=== PATIENT | male | born 1990 | race Caucasian/White ===

== ENCOUNTER 2019-02-08 13:50 | Inpatient (IN) | payer SELFPAY ==
[2019-02-08] VITALS (10 sets, daily range): BP systolic 114–164; BP diastolic 64–112; PULSE 18–125; RESP 15–30; TEMP 37.6–37.9; O2SAT 95–100; BMI 41.0; BMI 40.5
--- NOTE | 2019-02-08 14:04 | RAD_ITS ---
STUDY: X-RAY - LEFT ANKLE/TIBIA FIBULA REASON FOR EXAM: Male, 28 years old. Trauma TECHNIQUE: 5 view(s) of the ankle and tibia-fibula. COMPARISON: None. FINDINGS: There is an acute minimally displaced fracture at the distal fibula metadiaphysis. Additionally there is dislocation of the ankle joint widening of the ankle mortise medially. Soft tissue swelling is noted around the fracture site. The remainder of the visualized osseous structures appear intact. RAD/Tibia & Fibula 2 Views IMPRESSION: Minimally displaced fracture of the distal fibula. Dislocation at the ankle joint. Electronically Signed: Jean Marie Ferguson, at 15:40 EST Tel , Service support ,
[2019-02-08] MEDS: Morphine 4 MG/ML Syringe IV (14:10)
--- NOTE | 2019-02-08 14:20 | RAD_ITS ---
STUDY: X-RAY - LEFT ANKLE/TIBIA FIBULA REASON FOR EXAM: Male, 28 years old. Trauma TECHNIQUE: 5 view(s) of the ankle and tibia-fibula. COMPARISON: None. FINDINGS: There is an acute minimally displaced fracture at the distal fibula metadiaphysis. Additionally there is dislocation of the ankle joint widening of the ankle mortise medially. Soft tissue swelling is noted around the fracture site. The remainder of the visualized osseous structures appear intact. RAD/Ankle min 3 Views IMPRESSION: Minimally displaced fracture of the distal fibula. Dislocation at the ankle joint. Electronically Signed: Jean Marie Ferguson, at 15:38 EST Tel , Service support ,
--- NOTE | 2019-02-08 15:02 | RAD_ITS ---
STUDY: X-RAY - LEFT ANKLE REASON FOR EXAM: Male, 28 years old. Left ankle post reduction. TECHNIQUE: 3 views of the ankle. COMPARISON: 2:18 PM. FINDINGS: Status post casting in fiberglass. Acute, shallow oblique fracture of the distal fibular shaft is again noted with 5 mm lateral displacement of the distal fragment. This is mildly improved compared to the prior study. Alignment is anatomic. There is moderate lateral subluxation of the talus relative to the tibia. This is moderately improved compared to the prior study, but there is persistent widening of the medial tibiotalar joint. Tibiotalar joint is now anatomically aligned. RAD/Ankle min 3 Views IMPRESSION: 1. Anatomic alignment of the tibiotalar joint status post reduction. 2. Significant interval improvement in tibiotalar subluxation, but with moderate persistent widening of the medial tibiotalar joint. 3. Anatomic alignment of the fibula, with mild lateral displacement, improved from the earlier study. Electronically Signed: Latesha Smith MD at 15:40 EST Tel , Service support ,
--- NOTE | 2019-02-08 15:30 | ED.VISSUMM ---
- ER Visit Summary Date of Service: 02/08/19 Chief Complaint: [Injury to left ankle] History of Present Illness: The patient is a 28 M [presents to the emergency department with an injury to left ankle that occurred during a slip in the barn today. Patient states that he was moving maneuver when he slipped and fell and injured her left ankle. Patient unable to bear weight afterwards. Patient arrives via EMS. Patient has seen Dr. Jiang in the past for surgery on his right foot. Patient denies any other injuries.] Physical Examination: [HEENT-PERRLA, EOMI. Cranial nerves II through XII grossly intact. TMs clear. Mucous membranes moist. No adenopathy. Cardiovascular-regular rate and rhythm without murmur or ectopy Lungs-clear to auscultation, chest wall stable without crepitus or subcu emphysema Abdomen-normoactive bowel sounds, soft, nontender, no rebound or rigidity, no peritoneal signs. Extremities-intact ?4, normal range of motion, normal pulses. Left ankle-patient has diffuse soft tissue swelling with obvious deformity at the left ankle. He is neurovascular intact with normal sensation normal cap refill. Patient has normal dorsal pedal posterior tibial pulses. He has no pain at the proximal fibular head. No open areas noted.] Test Results: [Is a left ankle read by myself is a fracture of the distal third of the fibula with widening of the mortise and dislocation of the tibiotalar joint. Postreduction films obtained also showed continued widening of the mortise however there is been good reduction of the talofibular joint.] Emergency Department Course and Treatment: [Patient was consented for procedural sedation and given propofol. Patient had the ankle reduced and was placed in a stirrup and posterior splint. Postreduction x-rays obtained continue to show widening of the mortise. I discussed case with orthopedics Dr. Heath who is concerned about continued widening of the mortise and will admit patient for surgical intervention tomorrow. Patient was given morphine for pain.] Treatment Plan: [Admit] Disposition: [Admit] Impression: [Ankle fracture dislocation-closed] This note was generated with [employer] software. It may contain incorrect words, spelling, and punctuation that were not noted in review of the chart prior to signing ED Disposition - Plan for ED Patient: Referrals: Satish Garcia MD [Primary Care Provider] -
--- NOTE | 2019-02-08 15:33 | NURSING ---
MED SURG JEFFY LEFT ANKLE FX, UNSTABLE
[2019-02-08] MEDS: 0.9% Normal Saline 1,000 ML 15 ML IV (17:28)
[2019-02-08 17:36] LABS: Bedside Glucose 352 mg/dL (70-110)
[2019-02-08 17:38] LABS: Hematocrit 44.1 % (40-54); Hemoglobin 15.8 g/dL (13.0-16.5); Mean Corp Hgb Conc 35.8 g/dL (32-36); Mean Corpuscular Hgb 30.7 pg (27.0-32.0); Mean Corpuscular Volume 85.8 fL (80-94); Mean Platelet Vol. 9.3 fl (6.2-12.0); Platelet Count 231 K/mm3 (150-450); RBC Distribution Width CV 11.5 % (11.6-14.6); RBC Distribution Width SD 35.8 fl (35.1-43.9); Red Blood Count 5.14 M/mm3 (4.6-6.2); White Blood Count 12.5 K/mm3 (4.4-11.0)
[2019-02-08 17:51] LABS: Anion Gap 5 (5-15); BUN 9 mg/dL (7-18); BUN/Creat Ratio 11.1 RATIO (10-20); Calcium,Total 8.9 mg/dL (8.5-10.1); Chloride 104 mmol/L (98-107); Creatinine, Serum 0.81 mg/dL (0.70-1.30); EST Glomerular Filtration Rate 120 mL/min (>60); Est Glom Filt Rate - Afr Amer 145 mL/min (>60); Estimated Creatinine Clearance 135.78 ml/min; Glucose 317 mg/dL (74-106); Potassium 4.2 mmol/L (3.5-5.1); Sodium Level 137 mmol/L (136-145)
[2019-02-08 17:56] LABS: Hemoglobin A1c 9.7 % (4.2-6.3)
[2019-02-08] MEDS: Insulin Lispro 100 UNIT/ML INSULN.PEN SC ×2 (18:08→22:28)
[2019-02-08 18:22] LABS: Cholesterol 180 mg/dL (200); High Density Lipoprotein 30 mg/dL; Triglycerides 203 mg/dL; Very Low Density Lipoprotein 41 mg/dL (5-40)
--- NOTE | 2019-02-08 18:55 | CON.PCM_ITS ---
Reason for Consult Date of Consultation: 02/08/19 Reason for Consultation: medical management for elevated blood sugar History of Present Illness: The patient is a 28 year old M with no significant past medical history. He was admitted through the ED on 05/14/2018 with a complaint of left ankle pain. Patient states he was in the barn and tripped and menu and fell and had sudden onset of severe pain in his left ankle. He therefore decided to come into the ED. Patient denied having any fever or chills prior to this and denied any cough or shortness of breath, any respiratory symptoms, any abdominal pain or any pain with urination diarrhea vomiting. Review systems otherwise negative. Patient was admitted to the podiatry service, with Dr Heath also on board, and hospitalist service was consulted on account of elevated blood sugar. Patient denies being a known diabetic but blood sugar was 352 on admission. On admission, he was also noted to have a fever with temperature of 99.7 Fahrenheit. CBC showed white cell count of 12.5. X-ray of the tibia and fibula showed minimally displaced fracture of the distal fibula and dislocation of the ankle joint. Same findings were found on ankle x-ray. A1c checked was 9.7 the hospitalist services been consulted to manage newly diagnosed diabetes with hyperglycemia. Past Medical History Allergies No Known Allergies Allergy (Verified 02/08/19 13:51) Home Medications: Ambulatory Orders Medication Instructions Recorded NK 02/08/19 Surgical History: no surgical history Psychiatric History: No pertinent psych hx Lives: Spouse/ Significant Other Smoking Status: Never smoker Alcohol: None Drugs: None - *Family History Maternal History Items: No pertinent history Review of Systems Constitutional: Denies: Chills, Fever, Malaise, Weakness, Weight Change Eyes: Denies: Blurred vision HEENT: Denies: Head Aches, Sinus Congestion, Sinus Drainage Cardiovascular: Denies: Chest Pain, Palpitations Respiratory: Denies: Cough, Shortness of breath at rest, Sputum production Gastrointestinal: Denies: Abdominal Pain, Nausea, Vomiting Genitourinary: Denies: Dysuria Musculoskeletal: Denies: Joint Pain, Joint Tenderness Skin: Denies: Rash, Wounds Neurological: Denies: Numbness, Tingling, Focal weakness Psychiatric: Denies: Anxiety, Depression, Homicidal Ideations, Suicidal Ideations Hematologic/ Lymphatic: Denies: Easy Bruising, Easy Bleeding - Physical Exam Vitals/I&O's: Vital Signs Temp Pulse Resp BP Pulse Ox 99.7 F H 98 18 130/80 H 96 02/08/19 16:25 02/08/19 16:25 02/08/19 16:25 02/08/19 16:25 02/08/19 16:25 Oxygen Flow Rate (L/min) [5] 2 Oxygen Flow Rate (L/min) [4] 2 Oxygen Flow Rate (L/min) [2] 2 Oxygen Delivery Method [5] Nasal Cannula Oxygen Delivery Method [4] Nasal Cannula Oxygen Delivery Method [3] Nasal Cannula Oxygen Delivery Method [2] Nasal Cannula Oxygen Delivery Method [1 ( Nasal Cannula Initial Baseline)] Oxygen Delivery Method Room Air Weight: 274 lb 8 oz Body Mass Index (BMI) 40.5 Intake and Output for Last 24 Hours 02/06/19 02/07/19 02/08/19 23:59 23:59 23:59 Intake Total 240 / 240 Output Total 700 / 700 Balance -460 / -460 General: Alert, Oriented x3, Cooperative, No apparent distress, - - obese HEENT: Atraumatic, PERRLA, EOMI, Normocephalic Oral: Moist Mucosa Neck: Supple, No JVD, Negative Carotid Bruits Lungs: Clear to auscultation, Normal air movement, No rhonchi, No wheeze, No rales Cardiovascular: Regular rate, Regular Rhythm, Normal S1, Normal S2, No murmurs Abdomen: Bowel Sounds Present, Soft, Non Tender, Non-Distended, No Hepato- splenomegaly Extremities: No edema, Capillary Refill Less than 3 Seconds Skin: No rashes, No breakdown Musculoskeletal: - - LLE in splint. Able to wiggle toes Lymphatic: No Cervical, Supraclavicular, or Inguinal Adenopathy Neurological: Cranial nerves II-XII grossly intact, Deep Tendon Reflexes 2+/4 and Symmetrical, Neuro grossly intact Psych/Mental Status: Normal Affect, Appropriate, Alert and oriented to time, place, person, mood and affect Laboratory Results 02/08/19 17:24: POC Glucose 352 H 02/08/19 17:29: WBC 12.5 H, RBC 5.14, Hgb 15.8, Hct 44.1, MCV 85.8, MCH 30.7, MCHC 35.8, RDW Std Deviation 35.8, RDW Coeff of Pancho 11.5 L, Plt Count 231, MPV 9.3 02/08/19 17:29: Sodium 137, Potassium 4.2, Chloride 104, Carbon Dioxide 28.0, Anion Gap 5, BUN 9, Creatinine 0.81, Estim Creat Clear Calc 135.78, Est GFR (MDRD) Af Amer 145, Est GFR (MDRD) Non-Af 120, BUN/Creatinine Ratio 11.1, Glucose 317 H, Calcium 8.9 02/08/19 17:29: Hemoglobin A1c 9.7 H 02/08/19 17:59: Triglycerides 203 H, Cholesterol 180, LDL Cholesterol 109, VLDL Cholesterol 41 H, HDL Cholesterol 30 L Diagnostic Data Tibia/Fibula X-Ray 02/08/19 14:04 IMPRESSION: Minimally displaced fracture of the distal fibula. Dislocation at the ankle joint. Electronically Signed: Jean Marie Ferguson at 15:40 EST Tel , Service support , Ankle X-Ray 02/08/19 15:02 IMPRESSION: 1. Anatomic alignment of the tibiotalar joint status post reduction. 2. Significant interval improvement in tibiotalar subluxation, but with moderate persistent widening of the medial tibiotalar joint. 3. Anatomic alignment of the fibula, with mild lateral displacement, improved from the earlier study. Electronically Signed: Latesha Smith MD at 15:40 EST Tel , Service support , Current Medications Acetaminophen (Tylenol) 1,000 mg PO Q8 [facility] Sodium Chloride () 250 mls @ 15 mls/hr IV .[id number] PRN PRN Reason: Saline Flush Sodium Chloride () 1,000 mls @ 15 mls/hr IV .Q48H [facility] Last Admin: 02/08/19 17:28 Dose: 15 mls/hr Documented by: Lactated Ringer's () 1,000 mls @ 100 mls/hr IV .Q10H [facility] Cefazolin Sodium 2 gm/ Sodium (Chloride) 110 mls @ 150 mls/hr IV X1 ONE Stop: 02/09/19 06:43 Insulin Human Lispro (Humalog Kwikpen (Bkc)) 0 unit SC ACHS [facility]; Protocol Last Admin: 02/08/19 18:08 Dose: 8 u Documented by: Morphine Sulfate () 2 - 4 mg IV Q3H PRN PRN PRN Reason: pain score 5-7/10 Morphine Sulfate () 4 mg IV Q3H PRN PRN PRN Reason: pain >7/10 Oxycodone HCl (Oxyir) 5 mg PO Q4H PRN PRN PRN Reason: Pain Score 6-10/10 Sodium Chloride () 10 - 40 ml IV UD PRN PRN Reason: SALINE FLUSH Assessment/Plan 28 y/o admitted with a complaint of left ankle pain after mechanical fall 1. Left displaced fracture of the distal fibula and ankle joint dislocation * slipped in manure and fell and hurt his ankle * xrays showed minimally displaced fracture of the distal fibula and dislocation of the ankle joint. * LLE placed in splint in ED * orthopedic surgery on board; for surgery tomorrow * RCRI index for this patient-0/4 * patient is at low perioperative cardiac risk for surgery- unable to access NSQIP risk score online at time of review. * 2. Newly diagnosed diabetes mellitus * blood glucose was 352 on admission, and A1C checked was 9.7 * to start on metformin after surgery. start ISS. accuchecks ACHS * lipid panel: total cholesterol oaf 180, LDL of 109, HDL of 30. * 3. Fever and leucocytosis * etiology is unclear. Temperature was 100.3F on admission, and wbc is 12.5 * no evidence of infection, as he denies any fever, chills, cough or shortness of breath, abdominal pain or urinary symptoms * blood cultures ordered, as well as urinalysis * fever and leucocytosis could also be reactive, from fracture. * will hold off on antibiotics for now due to no obvious source of infection. * 4. Probable BURKE * patient is obese, and says he snores and has some apneic episodes * patient counseled that he is at risk of respiratory compromise if he undergoes general anesthesia for surgery, due to his risk for BURKE * counseled he will benefit from follow up with pulmonology upon discharge. * Thank you for the courtesy of the consult. We will continue to follow with you. * Code Visit Office Visits / Consults: [id number] IP Consult L4
[2019-02-08 19:37] LABS: Bacteria 0 SEEN /hpf (None Seen); Mucous, Urine 0 SEEN /hpf (<or=2+); White Blood Cells 0 SEEN /hpf (0-5)
[2019-02-08 19:41] LABS: Color, Urine Yellow (Yellow); Glucose, Dipstick Normal (Normal); Ketone-Dipstick Negative (Negative); Leukocyte Esterase-Dipstick Negative /ul (Negative); Nitrite-Dipstick Negative (Negative); Occult Blood-Urine 25 /ul (Negative); Protein-Dipstick Negative (Negative); Urine Bilirubin Dipstick Negative (Negative); Urine Clarity Sl. Cloudy (Clear); Urine Urobilinogen Normal (Normal)
[2019-02-08 19:58] LABS: Amorphous Sediment 1+ PHOS; Red Blood Cells-Urine 0-5 SEEN /hpf (0-5); Squamous Epithelial Cells - UA 0-5 SEEN /hpf (0-5)
[2019-02-08] MEDS: Acetaminophen 500 MG Tablet 1000 MG PO (22:27)
[2019-02-08 22:35] LABS: Bedside Glucose 347 mg/dL (70-110)
[2019-02-09] VITALS (11 sets, daily range): BP systolic 116–160; BP diastolic 64–100; PULSE 78–110; RESP 14–20; TEMP 36.7–37.7; O2SAT 91–98
[2019-02-09] MEDS: Lactated Ringers 1,000 ML 100 ML IV ×3 (00:04→14:07)
--- NOTE | 2019-02-09 05:00 | EKG12_ITS ---
Test Reason : PREOP Blood Pressure : / mmHG Vent. Rate : 083 BPM Atrial Rate : 083 BPM P-R Int : 150 ms QRS Dur : 094 ms QT Int : 370 ms P-R-T Axes : 042 -05 036 degrees QTc Int : 434 ms Normal sinus rhythm Normal ECG No previous ECGs available Confirmed by SRIDEVI SCHMITT, FAY ([id number]), scientific publications editor ANNIKA LÓPEZ ([id number]) on 02/09/2019 12:15:39 PM Referred By: Rei Heath Confirmed By:ANGELICA LAUREANO MD
[2019-02-09] MEDS: Insulin Lispro 100 UNIT/ML INSULN.PEN SC ×4 (06:31→22:46)
[2019-02-09 06:45] LABS: Bedside Glucose 231 mg/dL (70-110)
--- NOTE | 2019-02-09 07:38 | NURSING ---
pt transported down to surgery at this time via bed with IV running, report called to surgery. aware that consent is not signed as pt has not spoken with surgeon yet.
--- NOTE | 2019-02-09 07:39 | PCM.HP.STD ---
Problem List (1) Dislocation of left ankle joint, initial encounter Status: Acute (2) Fracture of fibula, left, closed Status: Acute Qualifiers: Encounter type: initial encounter Fibula location: shaft Fracture morphology: comminuted Fracture alignment: displaced Qualified Code(s): S82.452A - Displaced comminuted fracture of shaft of left fibula, initial encounter for closed fracture (3) Syndesmotic disruption of left ankle Status: Acute Qualifiers: Encounter type: initial encounter Qualified Code(s): S93.432A - Sprain of tibiofibular ligament of left ankle, initial encounter (4) Sprain of deltoid ligament of left ankle, initial encounter Status: Acute (5) Blood glucose elevated Status: Acute History of Present Illness Date of Admission: 02/08/19 Chief Complaint: Pain in left ankle s/p fall The patient is a 28 year old M with no significant past medical history. He was admitted through the ED on 02/08/[address] Heath with a complaint of left ankle pain. Patient states he was in his barn working. Unfortunately, he tripped and fell, placing all of his weight on his left ankle. He noticed immediate deformity of the ankle with significant pain. He was then brought to the emergency department by emergency services. Patient denied having any fever or chills prior to this and denied any cough or shortness of breath, any respiratory symptoms, any abdominal pain or any pain with urination diarrhea vomiting. Review systems otherwise negative. Patient was admitted to the orthopaedic service under Dr Heath, and hospitalist service was consulted on account of elevated blood sugar. The patient's blood sugar during transport to the hospital was 500. Patient denies being a known diabetic but blood sugar was 352 on admission. On admission, he was also noted to have a fever with temperature of 99.7 Fahrenheit. CBC showed white cell count of 12.5. X-ray of the tibia and fibula showed displaced fracture of the fibula and dislocation of the ankle joint. Due to the hyperglycemia and dislocation of the ankle, the patient was admitted for further workup and surgical intervention. [] Past Medical History Medical History: Medical History (Last Reviewed 02/09/19 @ 07:46 by Camilo Nix DPM) None (Acute) Patient denies medical problems Z78.9 Allergies No Known Allergies Allergy (Verified 02/08/19 13:51) Home Medications: Ambulatory Orders Medication Instructions Recorded NK 02/08/19 Surgical History: no surgical history Psychiatric History: No pertinent psych hx Lives: Spouse/ Significant Other Smoking Status: Never smoker Alcohol: None Drugs: None - *Family History Maternal Family History: Family History (Last Updated 02/09/19 @ 07:38 by Camilo Nix DPM) Other Family history reviewed with no changes History Items: No pertinent history Review of Systems Constitutional: Denies: Chills, Fever, Night Sweats, Malaise, Weakness, Fatigue Eyes: Denies: Blurred vision HEENT: Denies: Difficulty Hearing, Difficulty Swallowing, Dysphasia, Ear Pain, Eye Pain, Hard of Hearing, Head Aches Cardiovascular: Denies: Chest Pain, Claudication, Chest Pressure, Chest Tightness Respiratory: Denies: Cough, Shortness of Breath, Wheezing Gastrointestinal: Denies: Abdominal Pain, Constipation, Diarrhea, Dyspepsia, Nausea, Vomiting Genitourinary: Denies: Dysuria, Frequency Musculoskeletal: Reports: Joint swelling, Joint Tenderness, Leg Pain - left ankle pain Skin: Denies: Jaundice, Wounds Neurological: Denies: Balance problems, Blurred vision, Double vision Psychiatric: Denies: Anxiety, Depression Endocrine: Denies: Heat/ Cold Intolerance, Polydipsia, Polyuria Hematologic/ Lymphatic: Denies: Easy Bruising, Easy Bleeding VTE Information - Inpt Only VTE Present on Admission: No Patient Problems: Active and Suspected Problems (Last Reviewed 02/09/19 @ 07:46 by Camilo Nix DPM) Dislocation of left ankle joint, initial encounter (Acute) Fracture of fibula, left, closed (Acute) Syndesmotic disruption of left ankle (Acute) Sprain of deltoid ligament of left ankle, initial encounter (Acute) Blood glucose elevated (Acute) None (Acute) - Physical Exam Vitals/I&O's: Vital Signs Temp Pulse Resp BP Pulse Ox 99.0 F 78 16 135/79 H 98 02/09/19 04:35 02/09/19 04:35 02/09/19 04:35 02/09/19 04:35 02/09/19 04:35 Oxygen Flow Rate (L/min) [5] 2 Oxygen Flow Rate (L/min) [4] 2 Oxygen Flow Rate (L/min) [2] 2 Oxygen Delivery Method [5] Nasal Cannula Oxygen Delivery Method [4] Nasal Cannula Oxygen Delivery Method [3] Nasal Cannula Oxygen Delivery Method [2] Nasal Cannula Oxygen Delivery Method [1 ( Nasal Cannula Initial Baseline)] Oxygen Delivery Method Room Air Weight: 124.511 kg Body Mass Index (BMI) 40.5 Intake and Output for Last 24 Hours 02/07/19 02/08/19 02/09/19 23:59 23:59 23:59 Intake Total 240 / 240 98.75 / 98.75 Output Total 700 / 700 600 / 600 Balance -460 / -460 -501.25 / -501.25 General: Alert, Oriented x3, Cooperative, No apparent distress, Well developed, Well nourished HEENT: Atraumatic, PERRLA, EOMI, Normocephalic Oral: Moist Mucosa Neck: Supple, No JVD, Negative Carotid Bruits Lungs: Clear to auscultation, Normal air movement, No rhonchi, No wheeze, No rales Cardiovascular: Regular rate, Regular Rhythm, Normal S1, Normal S2 Abdomen: Bowel Sounds Present, Soft, Non Tender, Non-Distended, Obese Extremities: No clubbing, No cyanosis, Capillary Refill Less than 3 Seconds, Edema - Minimal non-pitting edema noted of the level of the left ankle joint when compared to the contralateral side. Not significant in comparison to the contralateral side., Peripheral Pulses Normal - Dorsalis pedis and posterior tibial pulse palpable to the left lower extremity. Skin: No rashes, No breakdown - Skin of left ankle, foot, leg intact with no evidence of open lesions noted. Musculoskeletal: Tenderness - Upon palpation compression of the left ankle joint. No other areas of tenderness noted. Lymphatic: No Cervical, Supraclavicular, or Inguinal Adenopathy Neurological: Cranial nerves II-XII grossly intact, Deep Tendon Reflexes 2+/4 and Symmetrical, Neuro grossly intact - Did not assess muscular the left lower extremity due to injury., Sensory exam intact to light touch and pain - Left foot ankle leg gross and protective sensation intact up to the tibial tuberosity. Psych/Mental Status: Normal Affect, Appropriate, Alert and oriented to time, place, person, mood and affect Laboratory Results 02/08/19 17:24: POC Glucose 352 H 02/08/19 17:29: WBC 12.5 H, RBC 5.14, Hgb 15.8, Hct 44.1, MCV 85.8, MCH 30.7, MCHC 35.8, RDW Std Deviation 35.8, RDW Coeff of Pancho 11.5 L, Plt Count 231, MPV 9.3 02/08/19 17:29: Sodium 137, Potassium 4.2, Chloride 104, Carbon Dioxide 28.0, Anion Gap 5, BUN 9, Creatinine 0.81, Estim Creat Clear Calc 135.78, Est GFR (MDRD) Af Amer 145, Est GFR (MDRD) Non-Af 120, BUN/Creatinine Ratio 11.1, Glucose 317 H, Calcium 8.9 02/08/19 17:29: Hemoglobin A1c 9.7 H 02/08/19 17:59: Triglycerides 203 H, Cholesterol 180, LDL Cholesterol 109, VLDL Cholesterol 41 H, HDL Cholesterol 30 L 02/08/19 19:30: Urine Color Yellow, Urine Clarity Sl. Cloudy, Urine pH 7.0, Ur Specific Taylor 1.010, Urine Protein Negative, Urine Glucose (UA) Normal, Urine Ketones Negative, Urine Occult Blood 25 H, Urine Nitrite Negative, Urine Bilirubin Negative, Urine Urobilinogen Normal, Ur Leukocyte Esterase Negative, Urine RBC 0-5 SEEN, Urine WBC 0 SEEN, Ur Squamous Epith Cells 0-5 SEEN, Amorphous Sediment 1+ PHOS, Urine Bacteria 0 SEEN, Urine Mucus 0 SEEN 02/08/19 22:25: POC Glucose 347 H 02/09/19 06:30: POC Glucose 231 H Current Medications Acetaminophen (Tylenol) 1,000 mg PO Q8 [facility] Last Admin: 02/09/19 05:39 Dose: Not Given Documented by: Sodium Chloride () 250 mls @ 15 mls/hr IV .[id number] PRN PRN Reason: Saline Flush Lactated Ringer's () 1,000 mls @ 100 mls/hr IV .Q10H [facility] Last Admin: 02/09/19 00:04 Dose: 100 mls/hr Documented by: Insulin Human Lispro (Humalog Kwikpen (Bkc)) 0 unit SC ACHS [facility]; Protocol Last Admin: 02/09/19 06:31 Dose: 6 u Documented by: Liraglutide (Victoza) 0.6 mg SQ DAILY [facility] Metformin HCl (Glucophage) 1,000 mg PO BIDCM [facility] Morphine Sulfate () 2 - 4 mg IV Q3H PRN PRN PRN Reason: pain score 5-7/10 Morphine Sulfate () 4 mg IV Q3H PRN PRN PRN Reason: pain >7/10 Oxycodone HCl (Oxyir) 5 mg PO Q4H PRN PRN PRN Reason: Pain Score 6-10/10 Sodium Chloride () 10 - 40 ml IV UD PRN PRN Reason: SALINE FLUSH Assessment/Plan All Active Problems (Last Reviewed 02/09/19 @ 07:46 by Camilo Nix DPM) Dislocation of left ankle joint, initial encounter (Acute) Fracture of fibula, left, closed (Acute) Syndesmotic disruption of left ankle (Acute) Sprain of deltoid ligament of left ankle, initial encounter (Acute) Blood glucose elevated (Acute) None (Acute) This is a 28-year-old male with no reported past medical history who was admitted by the emergency department on February 08, 2019 for left ankle dislocation with fibular fracture, syndesmotic disruption, deltoid ligament disruption. Furthermore upon admission patient was found to have an elevated blood glucose. At this point to the instability the ankle, I recommend open reduction with internal fixation to stabilize the joint. Due to the minimal swelling present and the palpable pulses, I believe this patient does not need an external fixator and can undergo internal fixation. This will be performed on the morning of February 09. Medicine team consulted for evaluation of hyperglycemia upon admission. Patient will remain nonweightbearing to the left lower extremity. We will continue to aid the patient and his pain control. We will continue to monitor closely and update accordingly, with updates after surgery. Thank you to the medicine team for consulting and assisting with this patient. Code Visit Inpatient E&M: 12643 Init Hosp L2 Multi Select Codes - Visit Charges Visit Charges: 77539 Init Hosp L2
[2019-02-09 07:44] LABS: Absolute Lymphocyte Count 2.58 X10^3/uL (0.83-4.51); Absolute Neutrophil Count 6.9 X10^3/uL (2.0-7.7); Basophil# 0.03 X10^3/uL; Basophil% 0.3 % (0-1); Eosinophil# 0.13 X10^3/uL; Eosinophils% 1.3 % (0-5); Hematocrit 42.5 % (40-54); Hemoglobin 14.6 g/dL (13.0-16.5); Lymphocyte # 2.58 X10^3/ul (4.0); Lymphocyte % 24.8 % (19-41); Mean Corp Hgb Conc 34.4 g/dL (32-36); Mean Corpuscular Volume 87.3 fL (80-94); Mean Platelet Vol. 9.5 fl (6.2-12.0); Monocyte# 0.65 X10^3/uL; Monocyte% 6.3 % (0-10); NRBC Flagged by Analyzer 0 % (0-5); Neutrophil # 6.93 X10^3/uL (2.7-7.7); Neutrophil % 66.6 % (47-70); Platelet Count 229 K/mm3 (150-450); RBC Distribution Width CV 11.8 % (11.6-14.6); RBC Distribution Width SD 37.2 fl (35.1-43.9); Red Blood Count 4.87 M/mm3 (4.6-6.2); White Blood Count 10.4 K/mm3 (4.4-11.0)
[2019-02-09 08:02] LABS: Anion Gap 5 (5-15); BUN 9 mg/dL (7-18); BUN/Creat Ratio 12.9 RATIO (10-20); Calcium,Total 8.5 mg/dL (8.5-10.1); Chloride 107 mmol/L (98-107); EST Glomerular Filtration Rate 142 mL/min (>60); Est Glom Filt Rate - Afr Amer 172 mL/min (>60); Estimated Creatinine Clearance 157.11 ml/min; Glucose 231 mg/dL (74-106); Potassium 3.7 mmol/L (3.5-5.1); Sodium Level 138 mmol/L (136-145)
[2019-02-09] MEDS: Cefazolin 2 GM in 0.9% Normal Saline 100 ML IV ×3 (08:10→23:33)
--- NOTE | 2019-02-09 08:15 | RAD_ITS ---
STUDY: Intraoperative fluoroscopic imaging LEFT ANKLE REASON FOR EXAM: Male, 28 years old. Open reduction internal fixation left ankle TECHNIQUE: 27 fluoroscopic view(s) of the ankle. COMPARISON: None. FINDINGS: There is series of images demonstrating fixation of the distal fibula and ankle, tibia. Reported fluoroscopy time was 286.4 seconds. RAD/Ankle 2 Views IMPRESSION: 27 intraoperative images demonstrating open reduction internal fixation in progress of the left ankle which on the final images appears to be near anatomic position and alignment with side plates and cortical screws. Electronically Signed: Julia Person MD at 10:59 EST Tel , Service support ,
[2019-02-09] MEDS: Cefazolin 1 GM/50 ML BAG IV (08:22)
[2019-02-09 11:01] LABS: Bedside Glucose 253 mg/dL (70-110)
--- NOTE | 2019-02-09 11:05 | PCM.OPRPT ---
Problem List (1) Dislocation of left ankle joint, initial encounter Status: Acute (2) Fracture of fibula, left, closed Status: Acute Qualifiers: Encounter type: initial encounter Fibula location: shaft Fracture morphology: comminuted Fracture alignment: displaced Qualified Code(s): S82.452A - Displaced comminuted fracture of shaft of left fibula, initial encounter for closed fracture (3) Syndesmotic disruption of left ankle Status: Acute Qualifiers: Encounter type: initial encounter Qualified Code(s): S93.432A - Sprain of tibiofibular ligament of left ankle, initial encounter (4) Sprain of deltoid ligament of left ankle, initial encounter Status: Acute (5) Blood glucose elevated Status: Acute Report of Operation Date of Procedure: 02/09/19 Pre-Operative Diagnosis: 1.) left ankle joint dislocation. 2.) left ankle syndesmotic rupture. 3.) left fibular fracture, closed. 4.) left deltoid ligament rupture Post-Operative Diagnosis: Same as preoperative Surgery/Procedure Performed:: 1. open reduction internal fixation left fibula fracture. 2. open reduction with internal fixation of left ankle joint syndesmosis. 3. open reduction of left ankle joint dislocation. 4. closed reduction of deltoid ligament rupture. Description of Surgical Findings:: Consistent with diagnosis. Adequate alignment of fibula fracture obtained with internal fixation. Adequate alignment of syndesmosis ligament obtained with internal fixation. Adequate alignment of the deltoid ligament obtained with reduction. Adequate alignment of ankle joint mortise obtained. tack coverer: Matt Manning Type of Anesthesia:: General/Regional - Popliteal block to left lower extremity given by anesthesia Anesthesiologist: Kayla Kraus Special Medications: 3 grams ancef Specimen's removed: None Drains: None Estimated Blood Loss (mL): 100mL Description of Procedure: Pathology: None Anesthesia: General with a popliteal block to left lower extremity Hemostasis: Pneumatic thigh tourniquet placed at the level of the left thigh at 300 mmHg for 120 minutes Estimated blood loss: 100 mL Materials: 1.) Synthes 10 hole one third tubular plate. 2.) Arthrex tight rope x2. 3.) Synthes 3.5 x 14 mm cortex screws x2 4.) Synthes 3.5 x 16 mm cortex screws x2 5.) Synthes 3.5 x 18 mm cortex screw 6.) 0 vicryl 7.) 2-0 Vicryl 8.) 3-0 vicryl 9.) 0 monocryl 10.) 3-0 monocryl 11.) 2-0 nylon 12.) 3-0 nylon Injectables: None Consultations: None Condition: Stable Indications: Patient is a 28-year-old male with no significant past medical history who [place] 08. Patient was brought by emergency medical service to the emergency department. At that time the severe ankle joint dislocation was noted. Closed reduction was performed in the ED but a diastases was noted in the syndesmosis of the left ankle and on the deltoid ligament. Furthermore during transport glucose monitoring was performed and his blood sugar was noted to be 500. At that time it was determined the patient would be admitted for surgery of the dislocation of the left ankle along with monitoring and adjusting of his blood sugar. Operative report: Before the patient was brought to the operating room, all the risks, benefits, possible outcomes, possible complications of the procedure were discussed with the patient. All the patient's questions were answered to his satisfaction and all of his concerns were addressed. No guarantees were made as to the outcome of the procedure. Patient understood all aspects of the procedure and consent was then signed by the patient. Patient was then brought to the operating room and placed on the operating table in supine position. After timeout, under general anesthesia, a well-padded pneumatic thigh tourniquet was placed to level of the left thigh. At this time the left foot, ankle, leg were then scrubbed, prepped, draped in the usual sterile manner. At this time radiographic evaluation was used to determine the distal tip of the lateral malleolus of the left ankle, the level of the ankle joint, and where the fracture of the fibula was located. Once determined, these levels were marked on the patient with a skin marker. Next the left lower extremity was elevated and exsanguinated via Esmarch and inflation of the pneumatic thigh tourniquet was performed to 300 mmHg. Attention was then directed to the lateral aspect of the left lateral malleolus. At this time a #15 blade was used to perform an incision starting in the lateral aspect of the distal one third of the fibular shaft extending distally to the distal tip of the lateral malleolus. This incision was deepened utilizing sharp and blunt dissection. Care was taken to retract all vital neural and vascular structures. All bleeders were cauterized and ligated as necessary. At this time a linear periosteal incision was made in line with the original skin incision. The periosteal and capsular structures were then reflected anteriorly and posteriorly, thus exposing the fracture fibula at the operative site. At this time a curette was used to remove any fibroticc tissue and muscle contained within the fracture site. This was removed to aid in the reduction of the fractured fibula. Of note at this time was that the fibula was severely comminuted and there was a posterior butterfly fracture that was comminuted as well. It was then determined that it would be incredibly difficult to get an interfragmentary screw across the fracture pieces. Furthermore, attempting to place an interfragmentary screw would lead to further comminution. It was determined this time that a stabilization plate would be placed in the lateral aspect of the left fibula to stabilize the fracture fragments and to obtain length of the fibula. At this time the fractured fibula was reduced via temporary fixation. Radiographic evaluation was then performed and the fibula was noted to be out to length. Furthermore the fracture fragments of the fibula were noted to be to be reduced. It was difficult to obtain perfect anatomical alignment due to the comminution of the fibula. Once adequate alignment of the fracture fragments was obtained, the ankle joint mortise was viewed once again. The fibula was noted to be out the length. Furthermore the ankle joint mortise was noted to be intact. At this time the Synthes 10 hole 1/3 tubular fibular plate was placed in the lateral aspect of the left fibula and was held via temporary fixation. Radiographic evaluation was then performed and the plate was noted to be placed in adequate position to the left fibula. Furthermore, there would be enough fixation proximally and distally to aid in the stabilization of the fracture. At this time the level of the ankle joint was measured on the fibula. A distance of 1.5 cm proximally was measured from the ankle joint and marked on the fibula. This is where 1 of the tight ropes will be placed. At this level there was an open hole in the Synthes plate and it was determined that the tight rope will be placed through this hole. Due to the size of the patient and the dislocation, it was determined that 2 tight ropes would be used. The second tightrope will be placed proximal to this first tight rope in the other hole of the Synthes fibular plate. The Synthes fibular plate was adhered to the lateral aspect of the fibula utilizing cortical screws. Of note during insertion of the screws with adequate compression of the plate to the bone. Furthermore no shifting of any of the fracture fragments occurred during insertion of the screws. Once adequate fixation was obtained proximally and distally, all temporary fixation was then removed. Radiographic evaluation was then performed. The screws were noted to not to be too long or too short and were noted to hold the plate against the fibula. Furthermore the plate was noted to hold the fibula in the corrected reduced position. The fragments were noted to be in adequate alignment and the fibula was noted to be out to length. Furthermore the ankle joint mortise was noted to be intact. At this time a large bone clamp was used to reduce the syndesmosis under live radiographic evaluation. Adequate compression was placed on the tibia and the fibula until anatomic overlap was achieved. This reduction clamp was then fixed into place. At this time K wires were driven through the 2 holes in the fibula plate that would be used for the tight rope. These were driven in a posterior lateral to anterior medial fashion from the fibula to the tibia to reapproximate the syndesmosis. Radiograph evaluation was used to determine the exact level of these K wires. Once adequate positioning these K wires was performed, drilling was performed of these K wires from the lateral cortex of the fibula through the medial cortex of the tibia. Once drilling was then performed the tight ropes were placed in standard fashion through the Synthes fibular hole plates through the medial aspect of the tibia. Once adequate with tension was placed through the tight ropes, the bone reduction clamp was removed removed from the ankle joint. Radiographic evaluation was then performed and the tibia and fibula overlap was noted to be back into anatomical reduction. Furthermore the tight ropes were noted to hold the ankle joint mortise in the correct the reduced position. At this time any excess FiberWire was cut and passed from the operative site. Radiograph evaluation was then performed once again. The fibula was noted to be out to length and the fracture fragments were held in the reduced position via the plate. Furthermore the ankle joint syndesmosis was noted to be back in anatomical alignment. Live radiographic evaluation was used to test the deltoid ligament. The deltoid ligament was noted to be significantly reduced from preoperative assessment. At this time the surgical site was irrigated copious muscle normal sterile saline. The periosteal and capsular structures were then reapproximated and coapted utilizing size 0 Vicryl and size 0 Monocryl. The subcutaneous tissues were reapproximated and coapted utilizing size 2-0 Vicryl, 3-0 Vicryl, and 3-0 Monocryl. The skin was reapproximated and coapted utilizing 2-0 nylon and 3-0 nylon in a simple interrupted and horizontal mattress fashion. At this time the pneumatic thigh tourniquet was then released and a prompt hyperemic response noted to the entirety of the left lower extremity. At this time the surgical site was then dressed with Betadine soaked gauze and a dry sterile dressing consisting of 4 x 4 gauze wrapped with Kerlix. At this time the left foot and ankle were then wrapped with an Seun bandage. Next a stockinette was placed over the left foot and ankle up to the tibial tuberosity. Cast padding was wrapped from the metatarsal heads extending proximally to level just distal to the tibial tuberosity. A posterior splint was fashioned to the left lower extremity and was adhered to the left lower extremity utilizing Seun bandages. Care was taken make sure that the foot and ankle held in a neutral position as the posterior splint dried. The patient tolerated the anesthesia and the procedure well and was transported to the PACU with vital signs stable and neurovascular status intact to left lower extremity. At this time the Dr. Kraus from anesthesia administered a popliteal block to the left lower extremity. After period of postoperative monitoring, the patient will be transferred back to the general medical floor. At this time we will keep the patient nonweightbearing to the left lower extremity. We will order physical therapy evaluation to help with assistive devices. The patient is to keep the left lower extremity elevated above the level of heart as much as possible. Ice is to be placed behind left knee 20 minutes on 20 minutes off every hour while awake. At this time medicine is consulted to assist in controlling the patient's blood sugar. 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 Patient will be started on DVT prophylaxis. Antibiotics will be continued while patient is in house. Pain medications ordered for patient. At this time we will keep the patient house until we can get his blood sugar under control. We will continue to follow the patient closely and update accordingly. - Admit VTE Documentation VTE Present on Admission: No
--- NOTE | 2019-02-09 11:20 | RAD_ITS ---
STUDY: X-RAY - LEFT ANKLE REASON FOR EXAM: Male, 28 years old. Postop TECHNIQUE: 4 view(s) of the ankle. COMPARISON: None. FINDINGS: There are 4 images demonstrating sideplates cortical screws transfixing the distal tibia and fibula. There is evidence of prior removal of cortical screws in the distal tibia and fibula. There is soft tissue edema. RAD/Ankle min 3 Views IMPRESSION: Post operative change left ankle. Soft tissue edema. Electronically Signed: Julia Person MD at 12:27 EST Tel , Service support ,
[2019-02-09] MEDS: Acetaminophen 500 MG Tablet 1000 MG PO ×2 (14:07→22:47)
--- NOTE | 2019-02-09 14:13 | PN_ITS ---
Patient Problems: Active and Suspected Problems (Last Reviewed 02/09/19 @ 07:46 by Camilo Nix DPM) Dislocation of left ankle joint, initial encounter (Acute) Fracture of fibula, left, closed (Acute) Syndesmotic disruption of left ankle (Acute) Sprain of deltoid ligament of left ankle, initial encounter (Acute) Blood glucose elevated (Acute) None (Acute) Subjective: The patient is a 28 y/o M w/ PMHx: Morbid Obesity, Suspected BURKE who presents to the [facility] ED on 02/08/19 with history of chemical fall with severe debility and left ankle pain as well as deformity. Given significant injury as well as new diagnosis of diabetes mellitus, patient admitted per Dr. Heath to [facility], plain film with as noted minimally displaced fracture of the distal fibula and dislocation of the ankle joint, left lower extremity placed in splint in the ED with OR 02/09/2019 w/ ORIF left fibula fracture, ORIF left ankle joint syndesmosis, open reduction left ankle joint dislocation, closed reduction deltoid ligament rupture, post-operative pain management, bowel regimen, DVT Prophylaxis, PT/OT/CM per Orthopedic surgery discretion. Blood sugars upon presentation in the 300s, no prior history, hemoglobin A1c obtained with 9.7% noted, initiated on metformin as well as Victoza which will need to be continued upon discharge, case management consulted to assist with medication cost assessments, maintain on ADA diet once transition per surgery, nutrition consultation for education and teaching, accu checks w/ ISS. Upon admission patient with notably elevated blood pressures with systolics greater than 140s and diastolics in the 100s, possibly secondary to pain as now improving, continue to closely monitor and once pain more controlled now that postoperative intervention performed if recurrently elevated consider initiation of regimen. Very suspicious for sleep apnea, snoring loudly in the PACU upon evaluation, will obtain overnight trending pulse ox and upon discharge to home encourage outpatient sleep apnea assessment. Patient overnight with reported ongoing severe left ankle discomfort although improved with regimen with blood sugar improvement with new onset diabetes mellitus type 2 diagnosed with regimen initiation. Patient seen in PACU status post operative intervention per Dr. Heath with from description notable usage of hardware. Patient in PACU bed is fatigued and lethargic with no acute complaints but intermittently falling back asleep with attempted discussions. Patient denies fevers, chills, nausea, emesis, abdominal pain, chest pain or dyspnea but again very fatigued and lethargic. Objective: Physical Examination: General: Awakens to stimuli, intermittently alert, difficult to answer orientation questions given recent operative intervention anesthetics, remains intermittently cooperative, currently no acute distress, when falling asleep snoring loudly, agree with likely sleep apnea. Skin: normal color, turgor, no icterus, cyanosis except noted left lower extremity with postoperative bandaging and Seun wrap in place. HEENT: AT/NC, EOM appear intact but not following commands completely given lethargy and sedation following recent operative intervention, PERRLA, dry MM. Lungs: Diminished breath sounds bilaterally, greater bases, moderate effort, sno ring loudly, suspected BURKE, no obvious rales, ronchi or wheezing. Heart: Regular rate and rhythm; no gallop, rub audible. Abdomen: soft, morbidly obese, NTTP, ND, distant normal BS. Extremities: no cyanosis, clubbing, left lower extremity with postoperative dressing and Seun wrap in place. Neurological: Awakens to stimuli, intermittently alert, difficult to answer orientation questions given recent operative intervention anesthetics, remains intermittently cooperative, currently no acute distress, when falling asleep snoring loudly, agree with likely sleep apnea; cognitive function not baseline intact; pupils equally reactive to light and accomodation; cranial nerves II-XII grossly normal but difficult assessment as lethargic and falling asleep, moving all 4 extremities but extremely severely global decrease given recent sedated regimen and surgical intervention. Psychiatric: affect appears larger, flat, no acute evidence of depressive or anxiety feelings. Vitals/I&O's: Vital Signs Temp Pulse Resp BP Pulse Ox 98.1 F 98 14 116/64 94 02/09/19 12:05 02/09/19 12:05 02/09/19 12:05 02/09/19 12:05 02/09/19 12:05 Oxygen Flow Rate (L/min) [5] 2 Oxygen Flow Rate (L/min) [4] 2 Oxygen Flow Rate (L/min) [2] 2 Oxygen Flow Rate (L/min) 3 Oxygen Delivery Method [5] Nasal Cannula Oxygen Delivery Method [4] Nasal Cannula Oxygen Delivery Method [3] Nasal Cannula Oxygen Delivery Method [2] Nasal Cannula Oxygen Delivery Method [1 ( Nasal Cannula Initial Baseline)] Oxygen Delivery Method Nasal Cannula Weight: 274 lb 8 oz Body Mass Index (BMI) 40.5 Intake and Output for Last 24 Hours 02/07/19 02/08/19 02/09/19 23:59 23:59 23:59 Intake Total 240 / 240 2208.75 / 2208.75 Output Total 700 / 700 600 / 600 Balance -460 / -460 1608.75 / 1608.75 Laboratory Results 02/08/19 17:24: POC Glucose 352 H 02/08/19 17:29: WBC 12.5 H, RBC 5.14, Hgb 15.8, Hct 44.1, MCV 85.8, MCH 30.7, MCHC 35.8, RDW Std Deviation 35.8, RDW Coeff of Pancho 11.5 L, Plt Count 231, MPV 9.3 02/08/19 17:29: Sodium 137, Potassium 4.2, Chloride 104, Carbon Dioxide 28.0, Anion Gap 5, BUN 9, Creatinine 0.81, Estim Creat Clear Calc 135.78, Est GFR (MDRD) Af Amer 145, Est GFR (MDRD) Non-Af 120, BUN/Creatinine Ratio 11.1, Glucose 317 H, Calcium 8.9 02/08/19 17:29: Hemoglobin A1c 9.7 H 02/08/19 17:59: Triglycerides 203 H, Cholesterol 180, LDL Cholesterol 109, VLDL Cholesterol 41 H, HDL Cholesterol 30 L 02/08/19 19:30: Urine Color Yellow, Urine Clarity Sl. Cloudy, Urine pH 7.0, Ur Specific Dickson 1.010, Urine Protein Negative, Urine Glucose (UA) Normal, Urine Ketones Negative, Urine Occult Blood 25 H, Urine Nitrite Negative, Urine Biliru bin Negative, Urine Urobilinogen Normal, Ur Leukocyte Esterase Negative, Urine RBC 0-5 SEEN, Urine WBC 0 SEEN, Ur Squamous Epith Cells 0-5 SEEN, Amorphous Sediment 1+ PHOS, Urine Bacteria 0 SEEN, Urine Mucus 0 SEEN 02/08/19 22:25: POC Glucose 347 H 02/09/19 06:30: POC Glucose 231 H 02/09/19 07:33: WBC 10.4, RBC 4.87, Hgb 14.6, Hct 42.5, MCV 87.3, MCH 30.0, MCHC 34.4, RDW Std Deviation 37.2, RDW Coeff of Pancho 11.8, Plt Count 229, MPV 9.5, Immature Gran % (Auto) 0.700, Neut % (Auto) 66.6, Lymph % (Auto) 24.8, Gillespie % (Auto) 6.3, Eos % (Auto) 1.3, Baso % (Auto) 0.3, Absolute Neuts (auto) 6.9, Absolute Lymphs (auto) 2.58, Nucleated RBC % 0 02/09/19 07:33: Sodium 138, Potassium 3.7, Chloride 107, Carbon Dioxide 26.0, Anion Gap 5, BUN 9, Creatinine 0.70, Estim Creat Clear Calc 157.11, Est GFR (MDRD) Af Amer 172, Est GFR (MDRD) Non-Af 142, BUN/Creatinine Ratio 12.9, Glucose 231 H, Calcium 8.5 02/09/19 10:57: POC Glucose 253 H Current Medications Acetaminophen (Tylenol) 1,000 mg PO Q8 [facility] Last Admin: 02/09/19 14:07 Dose: 1,000 mg Documented by: Enoxaparin Sodium (Lovenox) 40 mg SC DAILY@0600 [facility] Sodium Chloride () 250 mls @ 15 mls/hr IV .[id number] PRN PRN Reason: Saline Flush Lactated Ringer's () 1,000 mls @ 100 mls/hr IV .Q10H [facility] Last Admin: 02/09/19 14:07 Dose: 100 mls/hr Documented by: Cefazolin Sodium 2 gm/ Sodium (Chloride) 110 mls @ 150 mls/hr IV Q8H [facility] Insulin Human Lispro (Humalog Kwikpen (Bkc)) 0 unit SC ACHS [facility]; Protocol Last Admin: 02/09/19 11:10 Dose: 6 u Documented by: Liraglutide (Victoza) 0.6 mg SQ DAILY [facility] Metformin HCl (Glucophage) 1,000 mg PO BIDCM [facility] Morphine Sulfate () 2 - 4 mg IV Q3H PRN PRN PRN Reason: pain score 5-7/10 Morphine Sulfate () 4 mg IV Q3H PRN PRN PRN Reason: pain >7/10 Ondansetron HCl (Zofran) 4 mg IV Q6H PRN PRN PRN Reason: NAUSEA/VOMITING Ondansetron HCl (Zofran) 8 mg PO Q8H PRN PRN PRN Reason: NAUSEA/VOMITING Oxycodone HCl (Oxyir) 5 mg PO Q4H PRN PRN PRN Reason: Pain Score 6-10/10 Sodium Chloride () 10 - 40 ml IV UD PRN PRN Reason: SALINE FLUSH STROKE Vital Signs/Narrative: Vital Signs Temp Pulse Resp BP Pulse Ox 02/09/19 12:05 98.1 F 98 14 116/64 94 02/09/19 11:45 99.8 F H 105 H 18 142/71 H 94 02/09/19 11:30 109 H 18 155/88 H 92 02/09/19 11:15 110 H 18 147/96 H 91 02/09/19 11:00 98 20 H 160/100 H 92 02/09/19 10:43 99.0 F 103 H 20 H 155/95 H 93 Medical Necessity - Tobacco Use Smoking Status: Never smoker Assessment/Plan All Active Problems (Last Reviewed 02/09/19 @ 07:46 by Camilo Nix DPM) Dislocation of left ankle joint, initial encounter (Acute) Fracture of fibula, left, closed (Acute) Syndesmotic disruption of left ankle (Acute) Sprain of deltoid ligament of left ankle, initial encounter (Acute) Blood glucose elevated (Acute) None (Acute) The patient is a 28 y/o M w/ PMHx: Morbid Obesity, Suspected BURKE who presents to the [facility] ED on 02/08/19 with history of chemical fall with severe debility and left ankle pain as well as deformity. (1) Severe left ankle pain and debility with left displaced fracture of the distal fibula and ankle joint dislocation: Given significant injury as well as new diagnosis of diabetes mellitus, patient admitted per Dr. Heath to [facility], plain film with as noted minimally displaced fracture of the distal fibula and dislocation of the ankle joint, left lower extremity placed in splint in the ED with OR 02/09/2019 w/ ORIF left fibula fracture, ORIF left ankle joint syndesmosis, open reduction left ankle joint dislocation, closed reduction deltoid ligament rupture, post-operative pain management, bowel regimen, DVT Prophylaxis, PT/OT/CM per Orthopedic surgery discretion. (2) New Onset Diabetes mellitus type II w/ Hyperglycemia: Blood sugars upon presentation in the 300s, no prior history, hemoglobin A1c obtained with 9.7% noted, initiated on metformin as well as Victoza which will need to be continued upon discharge, case management consulted to assist with medication cost assessments, maintain on ADA diet once transition per surgery, nutrition consultation for education and teaching, accu checks w/ ISS. (3) Fever, leukocytosis: Likely reactive from recent acute presentation, #1, unclear specific etiology, no recent infection, blood cultures x2 pending per ED, CBC upon presentation with WBC well 0.5 with no differential performed, resolved on 02/09/2019 CBC with WBC 10.4 without any evidence of shift, still had intermittent low-grade temps overnight with T 99.8 max. (4) Elevated blood pressure without hypertensive diagnosis: Upon admission patient with notably elevated blood pressures with systolics greater than 140s and diastolics in the 100s, possibly secondary to pain as now improving, continue to closely monitor and once pain more controlled now that postoperative intervention performed if recurrently elevated consider initiation of regimen. PRN IV hydralazine. (5) Morbid Obesity: Weight loss and lifestyle changes encouraged, nutrition consulted. (6) Suspected BURKE: Very suspicious for sleep apnea, snoring loudly in the PACU upon evaluation, will obtain overnight trending pulse ox and upon discharge to home encourage outpatient sleep apnea assessment. (7) DVT prophylaxis: SCDs to unaffected extremity, lovenox. Code Visit Inpatient E&M: 23567 Subs Hosp L2
[2019-02-09] MEDS: metFORMIN HCl 1,000 MG Tablet 1000 MG PO (16:34)
[2019-02-09 17:05] LABS: Bedside Glucose 240 mg/dL (70-110)
[2019-02-09 23:00] LABS: Bedside Glucose 207 mg/dL (70-110)
[2019-02-09] MEDS: 0.9% Saline Lock 10 ML Syringe IV (23:33)
[2019-02-09] MEDS: Morphine 2 MG/ML Syringe IV (23:33)
[2019-02-10] VITALS (11 sets, daily range): BP systolic 141–160; BP diastolic 87–97; PULSE 68–95; RESP 16–20; TEMP 36.4–37.4; O2SAT 82–99
[2019-02-10] MEDS: oxyCODONE 5 MG Tablet PO ×4 (00:32→19:37)
[2019-02-10] MEDS: Lactated Ringers 1,000 ML 100 ML IV ×2 (01:43→11:04)
[2019-02-10] MEDS: HYDROmorphone 1 MG/ML Syringe 2 MG IV (02:19)
[2019-02-10] MEDS: 0.9% Saline Lock 10 ML Syringe IV ×6 (02:19→20:21)
[2019-02-10] MEDS: Acetaminophen 500 MG Tablet 1000 MG PO ×3 (05:40→21:55)
[2019-02-10] MEDS: Enoxaparin 40 MG/0.4 ML Syringe SC (05:42)
[2019-02-10] MEDS: Insulin Lispro 100 UNIT/ML INSULN.PEN SC ×4 (06:58→21:55)
[2019-02-10 07:05] LABS: Bedside Glucose 255 mg/dL (70-110)
[2019-02-10] MEDS: metFORMIN HCl 1,000 MG Tablet 1000 MG PO ×2 (08:28→16:45)
[2019-02-10] MEDS: Cefazolin 2 GM in 0.9% Normal Saline 100 ML IV ×2 (08:28→16:41)
--- NOTE | 2019-02-10 08:47 | PN_ITS ---
Patient Problems: Active and Suspected Problems (Last Reviewed 02/09/19 @ 07:46 by Camilo Nix DPM) Dislocation of left ankle joint, initial encounter (Acute) Fracture of fibula, left, closed (Acute) Syndesmotic disruption of left ankle (Acute) Sprain of deltoid ligament of left ankle, initial encounter (Acute) Blood glucose elevated (Acute) None (Acute) Subjective: Chief complaint: Follow-up after consultation for medical management for newly diagnosed type 2 diabetes mellitus. Patient seen and examined. No acute events overnight. Complained of left ankle pain, around 7 out of 10 in severity. He has been noted medications. His vital signs are stable. - Physical Exam Vitals/I&O's: Vital Signs Temp Pulse Resp BP Pulse Ox 97.5 F L 91 16 151/92 H 97 02/10/19 08:21 02/10/19 08:21 02/10/19 08:21 02/10/19 08:21 02/10/19 08:21 Oxygen Flow Rate (L/min) [5] 2 Oxygen Flow Rate (L/min) [4] 2 Oxygen Flow Rate (L/min) [2] 2 Oxygen Flow Rate (L/min) 1 Oxygen Delivery Method [5] Nasal Cannula Oxygen Delivery Method [4] Nasal Cannula Oxygen Delivery Method [3] Nasal Cannula Oxygen Delivery Method [2] Nasal Cannula Oxygen Delivery Method [1 ( Nasal Cannula Initial Baseline)] Oxygen Delivery Method Nasal Cannula Weight: 274 lb 8 oz Body Mass Index (BMI) 40.5 Intake and Output for Last 24 Hours 02/08/19 02/09/19 02/10/19 23:59 23:59 23:59 Intake Total 240 / 240 3540.42 / 4140.42 4515.00 / 4515.00 Output Total 700 / 700 1050 / 1950 3400 / 3400 Balance -460 / -460 2490.42 / 2190.42 1115.00 / 1115.00 General: Alert, Oriented x3, Cooperative, No apparent distress HEENT: Atraumatic, PERRLA, EOMI, Normocephalic Oral: Moist Mucosa, No Gingival or Mucosal Lesions/ Ulcerations Neck: Supple, No JVD, Negative Carotid Bruits, Trachea Midline, Thyroid Normal Size and Texture Lungs: Clear to auscultation, Normal air movement, No rhonchi, No wheeze, No rales Cardiovascular: Regular rate, Regular Rhythm, Normal S1, Normal S2, No murmurs, PMI Normal Abdomen: Bowel Sounds Present, Soft, Non Tender, Non-Distended, No Hepato- splenomegaly, Obese Extremities: No clubbing, No cyanosis, No edema Skin: No rashes, No breakdown Lymphatic: No Cervical, Supraclavicular, or Inguinal Adenopathy Neurological: Cranial nerves II-XII grossly intact, Motor Exam 5/5 strength throughout Psych/Mental Status: Normal Affect, Appropriate, Alert and oriented to time, place, person, mood and affect Laboratory Results 02/09/19 10:57: POC Glucose 253 H 02/09/19 16:27: POC Glucose 240 H 02/09/19 22:45: POC Glucose 207 H 02/10/19 06:55: POC Glucose 255 H Current Medications Acetaminophen (Tylenol) 1,000 mg PO Q8 [facility] Last Admin: 02/10/19 05:40 Dose: 1,000 mg Documented by: Enoxaparin Sodium (Lovenox) 40 mg SC DAILY@0600 [facility] Last Admin: 02/10/19 05:42 Dose: 40 mg Documented by: Sodium Chloride () 250 mls @ 15 mls/hr IV .[id number] PRN PRN Reason: Saline Flush Lactated Ringer's () 1,000 mls @ 100 mls/hr IV .Q10H [facility] Last Infusion: 02/10/19 08:29 Dose: 0 mls/hr Documented by: Cefazolin Sodium 2 gm/ Sodium (Chloride) 110 mls @ 150 mls/hr IV Q8H [facility] Last Admin: 02/10/19 08:28 Dose: 150 mls/hr Documented by: Insulin Human Lispro (Humalog Kwikpen (Bkc)) 0 unit SC ACHS [facility]; Protocol Last Admin: 02/10/19 06:58 Dose: 6 u Documented by: Metformin HCl (Glucophage) 1,000 mg PO BIDCM [facility] Last Admin: 02/10/19 08:28 Dose: 1,000 mg Documented by: Morphine Sulfate () 2 - 4 mg IV Q3H PRN PRN PRN Reason: pain score 5-7/10 Last Admin: 02/09/19 23:33 Dose: 4 mg Documented by: Morphine Sulfate () 4 mg IV Q3H PRN PRN PRN Reason: pain >7/10 Ondansetron HCl (Zofran) 4 mg IV Q6H PRN PRN PRN Reason: NAUSEA/VOMITING Ondansetron HCl (Zofran) 8 mg PO Q8H PRN PRN PRN Reason: NAUSEA/VOMITING Oxycodone HCl (Oxyir) 5 mg PO Q4H PRN PRN PRN Reason: Pain Score 6-10/10 Last Admin: 02/10/19 05:40 Dose: 5 mg Documented by: Sodium Chloride () 10 - 40 ml IV UD PRN PRN Reason: SALINE FLUSH Last Admin: 02/10/19 02:19 Dose: 10 ml Documented by: Medical Necessity - Tobacco Use Smoking Status: Never smoker Assessment/Plan All Active Problems (Last Reviewed 02/09/19 @ 07:46 by Camilo Nix DPM) Dislocation of left ankle joint, initial encounter (Acute) Fracture of fibula, left, closed (Acute) Syndesmotic disruption of left ankle (Acute) Sprain of deltoid ligament of left ankle, initial encounter (Acute) Blood glucose elevated (Acute) None (Acute) This is a 28 years old male patient presented to the emergency room because of left ankle pain after [place] in the barn, found to have acute traumatic displaced fracture of the distal fibula with dislocation of the left ankle joint, underwent open reduction and internal fixation of the left fibular fracture and open reduction of the left ankle joint dislocation, newly diagnosed with type 2 diabetes mellitus. #1 acute traumatic displaced fracture of the distal fibula and left ankle joint dislocation: Status post open reduction and internal fixation of the left fibular fracture, status post open reduction of the left ankle joint dislocation, postoperative day 1. Patient is on IV morphine and OxyIR PRN for pain. He is on IV cefazolin for perioperative prophylaxis. His vital signs are stable. He has been afebrile, no leukocytosis routine blood work from yesterday reviewed, unremarkable. Blood sugar has been in the range of 200s. Orthopedic surgery is on the case. #2 type 2 diabetes mellitus: Newly diagnosed, started on metformin 1000 twice daily. Hemoglobin A1c was 7.9. Blood sugar remained in the range of 200s. Recommend to continue same treatment. Patient can be discharged on metformin 1000 twice daily, prescription done and I prescribed glucometer with lancets and strips. Recommend follow-up with PCP in 1 to 2 weeks. #3 elevated blood pressure: Blood pressure stabilized still have episodes of slightly red blood pressure probably because of pain. For now, patient can be monitored, follow-up with PCP in 1 week. We will keep monitoring blood pressure overnight. #4 DVT prophylaxis: Subcu Lovenox. This note was generated with Next 1 Interactive dictation software. It may contain incorrect words, spelling, and punctuation that were not noted in checking the note before signing. Code Visit Inpatient E&M: 50234 Subs Hosp L2
--- NOTE | 2019-02-10 09:09 | CASEMGMT ---
Social Work Note Pt is listed as self-pay. Per PFS pt has [employer] aid and plans on billing homeowners insurance. Meli Caruso APPLIED RESEARCH DIRECTOR, TRAINING [employer]
[2019-02-10] MEDS: Morphine 4 MG/ML Syringe IV ×2 (10:12→20:21)
[2019-02-10 11:30] LABS: Bedside Glucose 233 mg/dL (70-110)
--- NOTE | 2019-02-10 11:58 | DCINST_ITS ---
- Discharge Diagnoses Current Active Problems: Current Active and Chronic Problems (Last Reviewed 02/09/19 @ 07:46 by Camilo Nix DPM) Dislocation of left ankle joint, initial encounter (Acute) Fracture of fibula, left, closed (Acute) Syndesmotic disruption of left ankle (Acute) Sprain of deltoid ligament of left ankle, initial encounter (Acute) Blood glucose elevated (Acute) None (Acute) You will use the following diet at home:: Calorie/Carbohydrate Controlled (specify 1200, 1400, etc) - 1800 jase. Discharge Activity: Return to Normal Activity Instructions: What Is Type 2 Diabetes?, Using a Blood Sugar Log, Hyperglycemia (High Blood Sugar), Hypoglycemia (Low Blood Sugar), How to Check Your Blood Sugar Allergies/Adverse Reactions: Allergies No Known Allergies Allergy (Verified 02/08/19 13:51) Medications to take at Discharge metFORMIN HCl [Glucophage] 1,000 mg PO BIDCM #90 tab 02/10/19 The following prescriptions were given: metFORMIN HCl [Glucophage] 1,000 mg PO BIDCM #90 tab Prescription Printed Orders to be completed after discharge: Glucometer Location: None Selected Primary Care Physician: Satish Garcia MD [Primary Care Provider] - Please follow up with your Primary Care Physician in: 1-2 weeks. Test Results: Test results from this visit will be discussed in further detail at your follow- up appointment, if applicable.
--- NOTE | 2019-02-10 11:58 | PCM.PN.ORT ---
Patient Problems: Active and Suspected Problems (Last Reviewed 02/09/19 @ 07:46 by Camilo Nix DPM) Dislocation of left ankle joint, initial encounter (Acute) Fracture of fibula, left, closed (Acute) Syndesmotic disruption of left ankle (Acute) Sprain of deltoid ligament of left ankle, initial encounter (Acute) Blood glucose elevated (Acute) None (Acute) Subjective: Patient seen at bedside resting comfortably. Patient is status post 1 day of left fibula open reduction with internal fixation along with repair of syndesmosis, reduction of ankle fracture, closed reduction of deltoid ligament rupture. Surgery was performed by [place], Dr. Camilo Nix, on February 09, 2019. The surgery was not performed by Dr. Rei Heath. Patient relates that his pain is currently under control at this time, rating it as a 4-10 on the VAS scale. Patient relates that overnight, from midnight to 4 AM, his pain reached at 9 or 10 out of 10. The pain is now well controlled. No other acute events reported overnight by patient. No acute events reported overnight by nursing staff. Patient is maintaining blood sugar around 230. Hyperglycemia management is being performed by the hospitalist medicine team. Currently, patient denies fever, chills, nausea, vomiting, shortness of breath, chest pain. Patient denies left calf pain. Objective: Left lower extremity exam: Dressing is clean, dry, intact to left lower extremity with no evidence of strikethrough noted. Capillary fill time is less than 3 seconds to all digits of the left foot. Neurovascular status is intact to the left foot. Musculoskeletal: Deferred Dermatological: Deferred - Physical Exam Vitals/I&O's: Vital Signs Temp Pulse Resp BP Pulse Ox 97.5 F L 88 16 151/92 H 95 02/10/19 08:21 02/10/19 09:37 02/10/19 08:21 02/10/19 08:21 02/10/19 09:37 Oxygen Flow Rate (L/min) [5] 2 Oxygen Flow Rate (L/min) [4] 2 Oxygen Flow Rate (L/min) [2] 2 Oxygen Flow Rate (L/min) 1 Oxygen Delivery Method [5] Nasal Cannula Oxygen Delivery Method [4] Nasal Cannula Oxygen Delivery Method [3] Nasal Cannula Oxygen Delivery Method [2] Nasal Cannula Oxygen Delivery Method [1 ( Nasal Cannula Initial Baseline)] Oxygen Delivery Method Nasal Cannula Weight: 124.511 kg Body Mass Index (BMI) 40.5 Intake and Output for Last 24 Hours 02/08/19 02/09/19 02/10/19 23:59 23:59 23:59 Intake Total 240 / 240 3540.42 / 4140.42 4811.67 / 4811.67 Output Total 700 / 700 1050 / 1950 3400 / 3400 Balance -460 / -460 2490.42 / 2190.42 1411.67 / 1411.67 General: Alert, Oriented x3, Cooperative, No apparent distress, Well developed, Well nourished HEENT: Atraumatic, PERRLA Neck: Supple, No JVD Lungs: Clear to auscultation, Normal air movement, No rhonchi, No wheeze, No rales Cardiovascular: Regular rate, Regular Rhythm, Normal S1, Normal S2 Abdomen: Bowel Sounds Present, Soft, Non Tender, Obese Extremities: No clubbing, No cyanosis, Capillary Refill Less than 3 Seconds Musculoskeletal: No Tenderness to Palpation of Joints or Extremities, - Neurological: Neuro grossly intact Psych/Mental Status: Alert and oriented to time, place, person, mood and affect Laboratory Results 02/09/19 16:27: POC Glucose 240 H 02/09/19 22:45: POC Glucose 207 H 02/10/19 06:55: POC Glucose 255 H 02/10/19 11:21: POC Glucose 233 H Current Medications Acetaminophen (Tylenol) 1,000 mg PO Q8 [facility] Last Admin: 02/10/19 05:40 Dose: 1,000 mg Documented by: Enoxaparin Sodium (Lovenox) 40 mg SC DAILY@0600 [facility] Last Admin: 02/10/19 05:42 Dose: 40 mg Documented by: Sodium Chloride () 250 mls @ 15 mls/hr IV .[id number] PRN PRN Reason: Saline Flush Lactated Ringer's () 1,000 mls @ 100 mls/hr IV .Q10H [facility] Last Admin: 02/10/19 11:04 Dose: 100 mls/hr Documented by: Cefazolin Sodium 2 gm/ Sodium (Chloride) 110 mls @ 150 mls/hr IV Q8H [facility] Last Infusion: 02/10/19 09:12 Dose: Infused Documented by: Insulin Human Lispro (Humalog Kwikpen (Bkc)) 0 unit SC [facility]; Protocol Last Admin: 02/10/19 11:23 Dose: 6 u Documented by: [facility] Last Admin: 02/10/19 08:28 Dose: 1,000 mg Documented by: Morphine Sulfate () 2 - 4 mg IV Q3H PRN PRN PRN Reason: pain score 5-7/10 Last Admin: 02/09/19 23:33 Dose: 4 mg Documented by: Morphine Sulfate () 4 mg IV Q3H PRN PRN PRN Reason: pain >7/10 Last Admin: 02/10/19 10:12 Dose: 4 mg Documented by: Ondansetron HCl (Zofran) 4 mg IV Q6H PRN PRN PRN Reason: NAUSEA/VOMITING Ondansetron HCl (Zofran) 8 mg PO Q8H PRN PRN PRN Reason: NAUSEA/VOMITING Oxycodone HCl (Oxyir) 5 mg PO Q4H PRN PRN PRN Reason: Pain Score 6-10/10 Last Admin: 02/10/19 05:40 Dose: 5 mg Documented by: Sodium Chloride () 10 - 40 ml IV UD PRN PRN Reason: SALINE FLUSH Last Admin: 02/10/19 10:12 Dose: 10 ml Documented by: Capacity - Capacity Assessment Tool Can the patient make a choice & communicate that choice?: Yes Can the patient understand benefits, risks and alternatives?: Yes Can the patient make a logical, rational choice?: Yes Is the choice the patient makes consistent w/ their values?: Yes Is there an impending, emergent risk to the patient?: No Medical Necessity - Tobacco Use Smoking Status: Never smoker Tobacco Use: Non-smoker Assessment/Plan All Active Problems (Last Reviewed 02/09/19 @ 07:46 by Camilo Nix DPM) Dislocation of left ankle joint, initial encounter (Acute) Fracture of fibula, left, closed (Acute) Syndesmotic disruption of left ankle (Acute) Sprain of deltoid ligament of left ankle, initial encounter (Acute) Blood glucose elevated (Acute) None (Acute) Plan: This is a 28-year-old male status post left fibula open reduction with internal fixation, left syndesmosis since ankle repair, left ankle reduction, left deltoid ligament reduction performed by me and Dr. Camilo Nix on February 09, 2019. The surgery was not performed by Dr. Rei Heath. Patient chart reviewed and patient evaluated. Patient's present during entire encounter. At this time preoperative and postoperative x-rays were shown and reviewed with the patient and in detail. Discussions of the surgical intervention were performed in detail. Patient displayed verbal understanding and stated that he had a very similar surgery performed on his right lower extremity. Postoperative course discussed with the patient, including remaining nonweightbearing to left lower extremity for an extended period of time, possibly up to 3 months. At this time, I discussed with the patient that the dressing that was placed on the left lower extremity would be kept clean, dry, intact until his follow-up appointment with me in the office. I instructed the patient to continue elevation above the level of heart as much as possible until his follow-up appointment with me. Furthermore instructed the patient to continue ice behind the left knee 20 minutes on, 20 minutes off, every hour while awake until his follow-up appointment with me. I instructed the patient that upon discharge I will write him a prescription for pain medication and DVT prophylaxis. I discussed with the patient the importance of tight glycemic control. I discussed with the patient that the medical staff will recommend medications and a regimen of control on an outpatient basis. I discussed with the patient that the more control he has over his blood sugar, the increase in chances of the healing of his left ankle in the faster recovery time he will experience. I sincerely appreciate the input and management from the medicine team here at [facility]. At this point, there are no further surgical interventions by me. I am awaiting the final input from the medical team for the medical regimen of his glycemic control. Once this has been determined, I would like to discharge the patient home. At this time, I will plan to discharge the patient tomorrow, February 11. I will change this as needed. I appreciate all input from the team here [facility]. Code Visit Inpatient E&M: 37962 Subs Hosp L2
--- NOTE | 2019-02-10 13:15 | CASEMGMT ---
RN MELODIE Face to Face with patient for initial transition planning/care coordination assessment. RN CM introduced self and role at [facility]. Patient lying in bed, alert and oriented, at bedside. Patient willing to participate in assessment and is able to answer all questions appropriately. Care providers, pharmacy, and demographics verified. Patient wishes to discharge home, denies need for home health at this time. Patient states he has no further needs or concerns at this time. CM to follow for discharge planning needs that may arise. PCP: Radha Specialists: none Preferred Pharmacy: [facility] Insurance: none, [facility] Pres[facility] Benefit: none Living Will/HPOA: none LNOK: Living Arrangements: Patient lives with in one story home. Transportation: Driving service DME/HHC: Patient denies any DME in the home. Patient will need crutches at discharge, thinks brother has some. Gave information regarding [facility] for DME. Disposition Plan: Patient to discharge home with family support and follow-up plans in place. Meli CHAVEZN, RN, CM
[2019-02-10 16:50] LABS: Bedside Glucose 198 mg/dL (70-110)
[2019-02-10 22:05] LABS: Bedside Glucose 207 mg/dL (70-110)
[2019-02-11] MEDS: Cefazolin 2 GM in 0.9% Normal Saline 100 ML IV ×2 (00:08→08:36)
[2019-02-11 02:55] VITALS: BP 153/93; PULSE 85; RESP 16; TEMP 37.5; O2SAT 93
[2019-02-11] MEDS: Insulin Lispro 100 UNIT/ML INSULN.PEN SC ×2 (06:28→12:04)
[2019-02-11] MEDS: Acetaminophen 500 MG Tablet 1000 MG PO (06:31)
[2019-02-11] MEDS: Enoxaparin 40 MG/0.4 ML Syringe SC (06:31)
[2019-02-11 06:56] LABS: Bedside Glucose 172 mg/dL (70-110)
[2019-02-11 07:10] VITALS: O2SAT 94
[2019-02-11] MEDS: 0.9% Saline Lock 10 ML Syringe IV (08:36)
[2019-02-11] MEDS: metFORMIN HCl 1,000 MG Tablet 1000 MG PO (08:39)
[2019-02-11 08:55] VITALS: BP 136/74; PULSE 80; RESP 18; TEMP 37.2; O2SAT 94
--- NOTE | 2019-02-11 08:59 | PN_ITS ---
Patient Problems: Active and Suspected Problems (Last Reviewed 02/09/19 @ 07:46 by Camilo Nix DPM) Dislocation of left ankle joint, initial encounter (Acute) Fracture of fibula, left, closed (Acute) Syndesmotic disruption of left ankle (Acute) Sprain of deltoid ligament of left ankle, initial encounter (Acute) Blood glucose elevated (Acute) None (Acute) Subjective: Chief complaint: Follow-up after consultation for medical management for newly diagnosed type 2 diabetes mellitus and elevated blood pressure. Patient seen and examined. No acute events overnight. Left ankle pain is improving, down to 3 out of 10 in severity and it is manageable. Denied any other complaints, has been afebrile. Blood pressure has been in the range of 150 systolic and diastolic was in the 90s. - Physical Exam Vitals/I&O's: Vital Signs Temp Pulse Resp BP Pulse Ox 99.5 F H 85 16 153/93 H 94 02/11/19 02:55 02/11/19 02:55 02/11/19 02:55 02/11/19 02:55 02/11/19 07:10 Oxygen Flow Rate (L/min) [5] 2 Oxygen Flow Rate (L/min) [4] 2 Oxygen Flow Rate (L/min) [2] 2 Oxygen Flow Rate (L/min) 1 Oxygen Delivery Method [5] Nasal Cannula Oxygen Delivery Method [4] Nasal Cannula Oxygen Delivery Method [3] Nasal Cannula Oxygen Delivery Method [2] Nasal Cannula Oxygen Delivery Method [1 ( Nasal Cannula Initial Baseline)] Oxygen Delivery Method Room Air Weight: 274 lb 8 oz Body Mass Index (BMI) 40.5 Intake and Output for Last 24 Hours 02/09/19 02/10/19 02/11/19 23:59 23:59 23:59 Intake Total 3540.42 / 4140.42 6468.75 / 6668.75 710 / 710 Output Total 1050 / 1950 5675 / 6100 1075 / 1075 Balance 2490.42 / 2190.42 793.75 / 568.75 -365 / -365 General: Alert, Oriented x3, Cooperative, No apparent distress HEENT: Atraumatic, PERRLA, EOMI, Normocephalic Oral: Moist Mucosa, No Gingival or Mucosal Lesions/ Ulcerations Neck: Supple, No JVD, Negative Carotid Bruits, Trachea Midline, Thyroid Normal Size and Texture Lungs: Clear to auscultation, No rhonchi, No wheeze, No rales Cardiovascular: Regular rate, Regular Rhythm, Normal S1, Normal S2, No murmurs, PMI Normal Abdomen: Bowel Sounds Present, Soft, Non Tender, Non-Distended, No Hepato- splenomegaly, Obese Extremities: No clubbing, No cyanosis, No edema Skin: No rashes, No breakdown Lymphatic: No Cervical, Supraclavicular, or Inguinal Adenopathy Neurological: Cranial nerves II-XII grossly intact, Motor Exam 5/5 strength throughout Psych/Mental Status: Normal Affect, Appropriate, Alert and oriented to time, place, person, mood and affect Laboratory Results 02/10/19 11:21: POC Glucose 233 H 02/10/19 16:43: POC Glucose 198 H 02/10/19 21:53: POC Glucose 207 H 02/11/19 06:27: POC Glucose 172 H Current Medications Acetaminophen (Tylenol) 1,000 mg PO Q8 [facility] Last Admin: 02/11/19 06:31 Dose: 1,000 mg Documented by: Enoxaparin Sodium (Lovenox) 40 mg SC DAILY@0600 [facility] Last Admin: 02/11/19 06:31 Dose: 40 mg Documented by: Sodium Chloride () 250 mls @ 15 mls/hr IV .[id number] PRN PRN Reason: Saline Flush Last Infusion: 02/10/19 17:39 Dose: 0 mls/hr Documented by: Cefazolin Sodium 2 gm/ Sodium (Chloride) 110 mls @ 150 mls/hr IV Q8H [facility] Last Admin: 02/11/19 08:36 Dose: 150 mls/hr Documented by: Insulin Human Lispro (Humalog Kwikpen (Bkc)) 0 unit SC A[facility]S [facility]; Protocol Last Admin: 02/11/19 06:28 Dose: 3 u Documented by: Lisinopril (Zestril) 20 mg PO DAILY [facility] Metformin HCl (Glucophage) 1,000 mg PO BIDCM [facility] Last Admin: 02/11/19 08:39 Dose: 1,000 mg Documented by: Morphine Sulfate () 2 - 4 mg IV Q3H PRN PRN PRN Reason: pain score 5-7/10 Last Admin: 02/09/19 23:33 Dose: 4 mg Documented by: Morphine Sulfate () 4 mg IV Q3H PRN PRN PRN Reason: pain >7/10 Last Admin: 02/10/19 20:21 Dose: 4 mg Documented by: Ondansetron HCl (Zofran) 4 mg IV Q6H PRN PRN PRN Reason: NAUSEA/VOMITING Ondansetron HCl (Zofran) 8 mg PO Q8H PRN PRN PRN Reason: NAUSEA/VOMITING Oxycodone HCl (Oxyir) 5 mg PO Q4H PRN PRN PRN Reason: Pain Score 6-10/10 Last Admin: 02/10/19 19:37 Dose: 5 mg Documented by: Sodium Chloride () 10 - 40 ml IV UD PRN PRN Reason: SALINE FLUSH Last Admin: 02/11/19 08:36 Dose: 10 ml Documented by: Medical Necessity - Tobacco Use Smoking Status: Never smoker Tobacco Use: Non-smoker Assessment/Plan All Active Problems (Last Reviewed 02/09/19 @ 07:46 by Camilo Nix DPM) Dislocation of left ankle joint, initial encounter (Acute) Fracture of fibula, left, closed (Acute) Syndesmotic disruption of left ankle (Acute) Sprain of deltoid ligament of left ankle, initial encounter (Acute) Blood glucose elevated (Acute) None (Acute) This is a 28 years old male patient presented to the emergency room because of left ankle pain after [place] in the barn, found to have acute traumatic displaced fracture of the distal fibula with dislocation of the left ankle joint, underwent open reduction and internal fixation of the left fibular fracture and open reduction of the left ankle joint dislocation, newly diagnosed with type 2 diabetes mellitus. #1 acute traumatic displaced fracture of the distal fibula and left ankle joint dislocation: Status post open reduction and internal fixation of the left fibular fracture, status post open reduction of the left ankle joint dislocation, postoperative day 2. Pain is well controlled. Patient is on IV morphine and OxyIR PRN for pain. Remains on IV cefazolin. Blood pressure slightly elevated, other vital signs are stable, has been afebrile. Orthopedic surgery is on the case. #2 type 2 diabetes mellitus: Newly diagnosed, he is on metformin 1000 twice daily. Hemoglobin A1c was 9.7. Blood sugar continue to improve, has been in the range of 170s to 230. Prescription for metformin and glucometer done. From medical standpoint, patient can be discharged on metformin and lisinopril, follow-up with PCP in 1 week, will sign off, call if needed. #3 elevated blood pressure/newly diagnosed hypertension: Blood pressure remained in the range of 150 systolic and 90s diastolic in spite of good pain control. Plan: Start lisinopril 20 mg p.o. daily. Prescription of lisinopril sent to his pharmacy. #4 DVT prophylaxis: Subcu Lovenox. This note was generated with [employer] dictation software. It may contain incorrect words, spelling, and punctuation that were not noted in checking the note before signing. Code Visit Inpatient E&M: 08631 Subs Hosp L2
[2019-02-11 09:00] VITALS: RESP 18
[2019-02-11] MEDS: Lisinopril 20 MG Tablet PO (10:44)
[2019-02-11 11:50] LABS: Bedside Glucose 205 mg/dL (70-110)
--- NOTE | 2019-02-11 14:06 | PCM.DC.ORTHO ---
Discharge Diet: 1800 Calorie Control Diet, Carb Control Diet Discharge Activity: Return to Normal Activity, May Not Drive, May Not Shower, Use Walker, Use Crutches Weight Bearing Status: No weight bearing Keep extremity elevated above heart level: Left Leg Additional Activity Instructions:: Keep dressing clean, dry, intact to left foot, ankle, leg. Do not get dressing wet. Elevate left leg above level of heart at all times. Ice behind left knee 20 minutes on, 20 minutes off every hour while awake until follow-up appointment. Take pain medication as prescribed. Take aspirin once a day as instructed. Call your doctor if your incision/area has: Continuous Slow Oozing, Sudden Increased Bleeding, Increased Pain/ Swelling Call your doctor if you observe: Fever of 101 or Higher, Coldness, Increased Pain, Shortness of breath, Dizziness, Chest pain, Increased palpitations (irregular heartbeat), Calf discomfort, Uncontrolled pain Suture Line Care: Avoid Pulling/Pushing, Avoid Pinching/Bending Change Dressing in (Days):: 0 - Do not change dressing. Dressing will be changed at follow-up appointment. Remove Dressing in (days):: 0 - Do not remove dressing. Dressing will be removed at follow-up appointment. Cleanse incision/area with: Keep Dressing Clean & Dry - Do not change dressing. Do not remove dressing. Keep dressing clean, dry, intact. Do not get dressing wet. Instructions: Using a Blood Sugar Log, Hyperglycemia (High Blood Sugar), Hypoglycemia (Low Blood Sugar), What Is Type 2 Diabetes?, How to Check Your Blood Sugar Allergies/Adverse Reactions: Allergies No Known Allergies Allergy (Verified 02/08/19 13:51) Medications to take at Discharge metFORMIN HCl [Glucophage] 1,000 mg PO BIDCM #90 tab 02/10/19 Aspirin 1 tab 02/11/19 Lisinopril [Zestril] 20 mg PO DAILY #30 tab 02/11/19 Percocet 5-325 mg Tablet 5 - 325 02/11/19 The following prescriptions were given: metFORMIN HCl [Glucophage] 1,000 mg PO BIDCM #90 tab Prescription Printed Lisinopril [Zestril] 20 mg PO DAILY #30 tab Transmission Status: Received by [facility]/pharmacy #[id number] Orders to be completed after discharge: Glucometer Location: None Selected Primary Care Physician: Satish Garcia MD [Primary Care Provider] - Please follow up with your Primary Care Physician in: 1-2 weeks. Test Results: Test results from this visit will be discussed in further detail at your follow-up appointment, if applicable. Please Follow Up With: Camilo Nix DPM When: February 14 at 10:45am in [place] office. Proposed Discharge Date: 02/11/19
--- NOTE | 2019-02-11 14:18 | DS.PCM_ITS ---
Discharge Date and Diagnosis - Problem List Patient Problems: Active and Suspected Problems (Last Reviewed 02/09/19 @ 07:46 by Camilo Nix DPM) Dislocation of left ankle joint, initial encounter (Acute) Fracture of fibula, left, closed (Acute) Syndesmotic disruption of left ankle (Acute) Sprain of deltoid ligament of left ankle, initial encounter (Acute) Blood glucose elevated (Acute) None (Acute) Date of Admission: 02/08/19 Date of Discharge: 02/11/19 - Primary Discharge Diagnosis Active and Suspected Problems (Last Reviewed 02/09/19 @ 07:46 by Camilo Nix DPM) Dislocation of left ankle joint, initial encounter (Acute) Fracture of fibula, left, closed (Acute) Syndesmotic disruption of left ankle (Acute) Sprain of deltoid ligament of left ankle, initial encounter (Acute) Blood glucose elevated (Acute) Hypertension (Acute) Hospital Course and Treatment Imaging Results: X-ray 3 views of the right ankle taken on February 08 pre-reduction: AP, lateral, medial oblique of the right ankle demonstrate lateral dislocation of the right ankle with evidence of syndesmosis widening. Furthermore evidence of medial gutter widening. There is also a comminuted midshaft fibular fracture noted. X-ray 3 views of the right ankle taken on February 08 postreduction: Postreduction reveals talus back underneath the tibia. Fibula is noted to be shortened with a comminuted fracture. Tibiofibular overlap is decreased with medial ankle gutter widened. X-ray 3 views right ankle taken on February 09 postoperatively: AP, lateral, medial oblique views the right foot demonstrate intact hardware of the fibula along with intact hardware of the tibia. Syndesmosis noted to be back in anatomic alignment. Fibula noted to be back in anatomical alignment. Ankle joint mortise appears intact. Fibula appears out to length. Comminuted fracture is held in place with plates and screws. Dr. Lu MD from hospitalist team for elevated blood pressure and hyperglycemia. Physical therapy for training with assistive devices for nonweightbearing to left lower extremity. Operations: - - Left fibula open reduction with internal fixation. Left ankle repair syndesmosis. Left ankle joint reduction. Closed reduction of deltoid ligament. Summary of Care Provided: The patient is a 28 year old M with no reported past medical history who [place]. Patient noticed immediate pain and deformity of his left foot and ankle. At that time emergency medical services were called and brought to the patient to the emergency department. During the emergency medical services encounter, patient was found to have a blood sugar of 500. Patient had an elevated blood sugar 350 upon a rrival of the emergency department. At that time attempted closed reduction was performed of his left ankle. Evidence of deformity was still present. Orthopedic services were consulted and due to the instability of the ankle, patient was admitted for operative intervention. Furthermore since his blood sugar was significant elevated, it was decided that admission would be necessary to help control this. Operative intervention was performed on the morning of February 09, [address] Camilo Nix. Procedure performed her left fibula open reduction with internal fixation, left ankle syndesmosis repair, left ankle joint reduction, left deltoid ligament reduction. Patient was then placed in a dry sterile dressing a posterior splint. The hospitalist was consulted for medical management the patient. Patient was found to have elevated blood pressure and elevated glucose. Patient will be subsequently discharged on lisinopril and metformin with follow-up with a primary care physician in 1 week. Physical therapy was consulted for training for nonweightbearing to left lower extremity utilizing assistive devices.. Patient was seen today with no acute complaints and states he is ready to go home. Since the medicine team has determined his plan of care after discharge, the patient okay to discharge home today with follow-up instructions. Patient will follow-up with me on February 14, 2019 for further postoperative care. [] Patient Problems: Active and Suspected Problems (Last Reviewed 02/09/19 @ 07:46 by Camilo Nix DPM) Dislocation of left ankle joint, initial encounter (Acute) Fracture of fibula, left, closed (Acute) Syndesmotic disruption of left ankle (Acute) Sprain of deltoid ligament of left ankle, initial encounter (Acute) Blood glucose elevated (Acute) None (Acute) Subjective: Patient seen today resting comfortably at bedside. Patient's present at bedside. Patient denies any acute overnight events. Patient states that his pain is well controlled with the pain medication. Patient feels that he is ready to go home at this time. No acute events reported overnight by nursing staff. Patient states that Dr. Leigh has been in and discussed with him that he will be taking 2 medications at home, metformin and lisinopril. This will help control his elevated blood glucose and elevated blood pressure. Patient states that he does have an appointment within 1 week to follow-up with a primary care provider. Currently, patient denies fever, chills, nausea, vomiting, shortness of breath, chest pain. Patient admits to improved pain of the left foot and ankle. Objective: Left lower extremity exam: Dressing clean, dry, intact to left lower extremity with no evidence of strikethrough noted. Cap refill time is less than 3 seconds to digits the left foot. Neurological examination is grossly intact left lower extremity. Musculoskeletal is deferred at this time. - Physical Exam Vitals/I&O's: Vital Signs Temp Pulse Resp BP Pulse Ox 98.9 F 80 18 136/74 H 94 02/11/19 08:55 02/11/19 08:55 02/11/19 09:00 02/11/19 08:55 02/11/19 08:55 Oxygen Flow Rate (L/min) [5] 2 Oxygen Flow Rate (L/min) [4] 2 Oxygen Flow Rate (L/min) [2] 2 Oxygen Flow Rate (L/min) 1 Oxygen Delivery Method [5] Nasal Cannula Oxygen Delivery Method [4] Nasal Cannula Oxygen Delivery Method [3] Nasal Cannula Oxygen Delivery Method [2] Nasal Cannula Oxygen Delivery Method [1 ( Nasal Cannula Initial Baseline)] Oxygen Delivery Method Room Air Weight: 124.511 kg Body Mass Index (BMI) 40.5 Intake and Output for Last 24 Hours 02/09/19 02/10/19 02/11/19 23:59 23:59 23:59 Intake Total 3540.42 / 4140.42 6468.75 / 6668.75 820 / 820 Output Total 1050 / 1950 5675 / 6100 1075 / 1075 Balance 2490.42 / 2190.42 793.75 / 568.75 -255 / -255 General: Alert, Oriented x3, Cooperative, Well developed, Well nourished HEENT: Atraumatic, PERRLA Oral: Moist Mucosa Neck: Supple, No JVD Lungs: Clear to auscultation, Normal air movement, No rhonchi, No wheeze, No rales Cardiovascular: Regular rate, Regular Rhythm, Normal S1, Normal S2 Abdomen: Bowel Sounds Present, Soft, Non Tender, Obese Extremities: No clubbing, No cyanosis, Capillary Refill Less than 3 Seconds, No Calf Tenderness Skin: No rashes, No breakdown Musculoskeletal: Tenderness - Upon palpation of left ankle status post surgical intervention. Neurological: Neuro grossly intact, Muscle tone normal, Sensory exam intact to light touch and pain Psych/Mental Status: Normal Affect, Alert and oriented to time, place, person, mood and affect Microbiology Past 72 Hours 02/08/19 18:55 Blood Culture (Wb) - Anticubital Right Blood Culture - Preliminary No growth in 48 hours. 02/08/19 18:52 Blood Culture (Wb) - Left Hand Blood Culture - Preliminary No growth in 48 hours. Laboratory Results 02/10/19 16:43: POC Glucose 198 H 02/10/19 21:53: POC Glucose 207 H 02/11/19 06:27: POC Glucose 172 H 02/11/19 11:21: POC Glucose 205 H Current Medications Insulin Human Lispro (Humalog Kwikpen (Bkc)) 0 unit SC [facility]; Protocol Last Admin: 02/11/19 12:04 Dose: 3 u Documented by: Lisinopril (Zestril) 20 mg PO DAILY [facility] Last Admin: 02/11/19 10:44 Dose: 20 mg Documented by: [facility] Last Admin: 02/11/19 08:39 Dose: 1,000 mg Documented by: Oxycodone HCl (Oxyir) 5 mg PO Q4H PRN PRN PRN Reason: Pain Score 6-10/10 Last Admin: 02/10/19 19:37 Dose: 5 mg Documented by: Sodium Chloride () 10 - 40 ml IV UD PRN PRN Reason: SALINE FLUSH Last Admin: 02/11/19 08:36 Dose: 10 ml Documented by: Discharge Diet: 1800 Calorie Control Diet, Carb Control Diet Discharge Activity: Return to Normal Activity, May Not Drive, May Not Shower, Use Walker, Use Crutches Weight Bearing Status: No weight bearing Keep extremity elevated above heart level: Left Leg Additional Activity Instructions:: Keep dressing clean, dry, intact to left foot, ankle, leg. Do not get dressing wet. Elevate left leg above level of heart at all times. Ice behind left knee 20 minutes on, 20 minutes off every hour while awake until follow-up appointment. Take pain medication as prescribed. Take aspirin once a day as instructed. Call your doctor if your incision/area has: Continuous Slow Oozing, Sudden Increased Bleeding, Increased Pain/ Swelling Call your doctor if you observe: Fever of 101 or Higher, Coldness, Increased Pain, Shortness of breath, Dizziness, Chest pain, Increased palpitations (irregular heartbeat), Calf discomfort, Uncontrolled pain Suture Line Care: Avoid Pulling/Pushing, Avoid Pinching/Bending Change Dressing in (Days):: 0 - Do not change dressing. Dressing will be changed at follow-up appointment. Remove Dressing in (days):: 0 - Do not remove dressing. Dressing will be removed at follow-up appointment. Cleanse incision/area with: Keep Dressing Clean & Dry - Do not change dressing. Do not remove dressing. Keep dressing clean, dry, intact. Do not get dressing wet. Home Medications: Medications to take at Discharge metFORMIN HCl [Glucophage] 1,000 mg PO BIDCM #90 tab 02/10/19 Aspirin 1 tab 02/11/19 Lisinopril [Zestril] 20 mg PO DAILY #30 tab 02/11/19 Percocet 5-325 mg Tablet 5 - 325 02/11/19 Following Prescrptions Were Given to Patient: metFORMIN HCl [Glucophage] 1,000 mg PO BIDCM #90 tab Prescription Printed Lisinopril [Zestril] 20 mg PO DAILY #30 tab Transmission Status: Received by [facility]/pharmacy #[id number] Other Amb Orders: Glucometer Location: None Selected Primary Care Physician: Satish Garcia MD [Primary Care Provider] - Please follow up with your Primary Care Physician in: 1-2 weeks. Please Follow Up With: Camilo Nix DPM When: February 14 at 10:45am in [place] office. Patient Instructions: Using a Blood Sugar Log, Hyperglycemia (High Blood Sugar), Hypoglycemia (Low Blood Sugar), What Is Type 2 Diabetes?, How to Check Your Blood Sugar Disposition: Home Minutes spent on discharge:: 45 Patient Condition:: Good Medical Necessity - Tobacco Use Smoking Status: Never smoker Tobacco Use: Non-smoker Meaningful Use Info Meaningful Use Diagnoses (Choose all that apply): None applicable Code Visit Inpatient E&M: 55917 Disch Hosp
[2019-02-11] MEDS: oxyCODONE 5 MG Tablet PO (15:02)
[2019-02-11 15:48] VITALS: BP 128/66; PULSE 70; RESP 18; TEMP 37; O2SAT 97
== END 2019-02-11 16:42 | disposition home or self-care (01) | DRG 493 ==
LOC: ED 15:40 → MS3 15:50
PROVIDERS: Anesthesiology; Family Medicine; Student in an Organized Health Care Education/Training Program; Admitting Provider Podiatrist Foot & Ankle Surgery; Emergency Provider Emergency Medicine; Family Provider Family Medicine; PCP Family Medicine; Referring Provider Specialist; Visit Provider Hospitalist
PROC: 0QSK04Z Reposition Left Fibula with Internal Fixation Device, Open Approach (ICD-10-PCS; principal; 2019-02-09 08:00)
DX: S82.832A Other fracture of upper and lower end of left fibula, initial encounter for closed fracture (principal); Z68.41 Body mass index [BMI] 40.0-44.9, adult; W01.0XXA Fall on same level from slipping, tripping and stumbling without subsequent striking against object, initial encounter; Y92.71 Barn as the place of occurrence of the external cause; S93.05XA Dislocation of left ankle joint, initial encounter; S93.422A Sprain of deltoid ligament of left ankle, initial encounter; S93.432A Sprain of tibiofibular ligament of left ankle, initial encounter; E66.01 Morbid (severe) obesity due to excess calories; E11.65 Type 2 diabetes mellitus with hyperglycemia; I10 Essential (primary) hypertension
CPT/HCPCS: 36415; 73590; 73600; 73610; 76000; 80048; 80061; 81001; 82962; 83036; 85025; 85027; 87040; 93005; 94762; 97116; 97161; 97803; 99152; 99285; C1713; J7030; J7050; J7120; A4216; J2405